=== PATIENT | female | born 1960 | race Caucasian/White ===

== ENCOUNTER → 2019-10-19 09:48 | Outpatient (CLI) | payer BC, SELFPAY ==
[2019-10-19 13:03] LABS: AST(SGOT) 28 U/L (15-37); Alanine Aminotransfer ALT/SGPT 46 U/L (13-56); Albumin, Serum 4.1 g/dL (3.2-5.0); Alkaline Phosphatase 84 U/L (45-117); Anion Gap 4 (5-15); BUN 13 mg/dL (7-18); BUN/Creat Ratio 16.4 RATIO (10-20); Chloride 105 mmol/L (98-107); Cholesterol 232 mg/dL (200); Creatinine, Serum 0.79 mg/dL (0.55-1.02); EST Glomerular Filtration Rate 79 mL/min (>60); Est Glom Filt Rate - Afr Amer 96 mL/min (>60); Globulin 4.1 g/dL (2.2-4.2); Glucose 76 mg/dL (74-106); High Density Lipoprotein 92 mg/dL; Potassium 3.7 mmol/L (3.5-5.1); Protein, Total 8.2 g/dL (6.4-8.2); Sodium Level 140 mmol/L (136-145); Thyroid Stim Hormone (TSH) 4.24 uIU/mL (0.358-3.74); Triglycerides 63 mg/dL; Very Low Density Lipoprotein 13 mg/dL (5-40)
== END ==
PROVIDERS: Nurse Practitioner Family; PCP Family Medicine; Referring Provider Family Medicine; Visit Provider Family Medicine
DX: E66.3 Overweight (principal)
CPT/HCPCS: 36415; 80053; 80061; 84443

== ENCOUNTER → 2019-10-19 11:27 | Outpatient (CLI) | payer BC, SELFPAY ==
[2019-10-19 11:27] VITALS: BMI 28.1
--- NOTE | 2019-10-19 11:28 | RAD_ITS ---
STUDY: X-RAY - LEFT HAND REASON FOR EXAM: Female, 58 years old. Pain. TECHNIQUE: 3 view(s) of the hand. COMPARISON: None. FINDINGS: Normal radiocarpal articulation. Normal distal radioulnar joint. Normal visualized carpal bones. Normal carpal articulations Normal carpometacarpal articulation of the thumb. Normal second through fifth carpometacarpal joints. Normal metacarpi. Normal metacarpophalangeal joint of the thumb. 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 Normal proximal and distal phalanges of the thumb. Normal metacarpophalangeal joints of the second through fifth fingers. Normal proximal and distal interphalangeal joints of the second through fifth fingers. Normal phalanges of the second through fifth fingers. The soft tissue structures are unremarkable. RAD/Hand Min 3 Views IMPRESSION: Minimal. Degenerative changes of the interphalangeal joint of the first digit. Electronically Signed: Jaime Deleon DO at 22:36 EST Tel [phone], Service support ,
== END ==
PROVIDERS: PCP Family Medicine; Referring Provider Orthopaedic Surgery; Visit Provider Orthopaedic Surgery
DX: M79.645 Pain in left finger(s) (principal)
CPT/HCPCS: 73130

== ENCOUNTER → 2020-10-17 14:58 | Outpatient (CLI) | payer BC, SELFPAY ==
[2019-10-19 11:27] VITALS: BMI 28.1
[2020-10-17 18:43] LABS: Thyroid Stim Hormone (TSH) 1.97 uIU/mL (0.358-3.74)
[2020-10-24 13:53] LABS: HPV Reflexed? NOT INDICATED
== END ==
PROVIDERS: Nurse Practitioner Family; PCP Family Medicine; Visit Provider Family Medicine
DX: Z01.419 Encounter for gynecological examination (general) (routine) without abnormal findings (principal); E03.9 Hypothyroidism, unspecified
CPT/HCPCS: 36415; 84443; 88175; G0145

== ENCOUNTER → 2020-10-28 13:35 | Outpatient (CLI) | payer BC, SELFPAY ==
[2019-10-19 11:27] VITALS: BMI 28.1
--- NOTE | 2020-10-28 13:40 | BI_ITS ---
MAMMOGRAPHY - BILATERAL SCREENING REASON FOR EXAM: Female, 59 years old. Routine annual screening examination. PERTINENT HISTORY: Non-contributory. TECHNIQUE: Digital bilateral breast daiana (3D mammographic acquisition) in the CC and MLO projections. 2-D mediolateral oblique (MLO) and craniocaudad (CC) views of both breasts were obtained. CAD: Full Field Digital Mammography with Computer Added Detection was performed. COMPARISON: Comparison is made with prior outside examination dated 07/22/2008. FINDINGS: Breast Composition: There are scattered areas of fibroglandular density. There are no dominant masses or suspicious calcifications. No other significant abnormalities are identified. There has been no significant change since the prior study. BI/SCRN MAMM (CAD)W/DAIANA BILAT IMPRESSION: Stable bilateral screening mammogram. Yearly follow-up mammogram recommended. (A) ASSESSMENT CATEGORY: BIRADS Category 1: Negative. A letter regarding these results will be sent to the patient by the facility within 30 days. Approximately 10% of breast cancers are not detected by mammography. A normal mammogram should not delay biopsy of a clinically suspicious abnormality. [id number] Electronically Signed: Vidal Alcantara MD at 15:26 EST , Service support ,
== END ==
PROVIDERS: PCP Family Medicine; Referring Provider Nurse Practitioner Family; Visit Provider Nurse Practitioner Family
DX: Z12.31 Encounter for screening mammogram for malignant neoplasm of breast (principal)
CPT/HCPCS: 77063; 77067

== ENCOUNTER → 2020-11-07 10:07 | Outpatient (CLI) | payer BC, SELFPAY ==
[2019-10-19 11:27] VITALS: BMI 28.1
[2020-11-08 20:27] LABS: HPV Reflexed? NOT INDICATED
== END ==
PROVIDERS: PCP Family Medicine; Visit Provider Nurse Practitioner Adult Health
DX: Z01.419 Encounter for gynecological examination (general) (routine) without abnormal findings (principal)
CPT/HCPCS: 88175; G0145

== ENCOUNTER 2021-12-29 15:41 | Outpatient (CLI) | payer BC, SELFPAY ==
[2021-12-29 18:13] LABS: Vitamin D,25 Hydroxy 80.1 ng/mL
[2021-12-29 18:22] LABS: AST(SGOT) 30 U/L (15-37); Alanine Aminotransfer ALT/SGPT 42 U/L (13-56); Albumin, Serum 3.8 g/dL (3.2-5.0); Alkaline Phosphatase 67 U/L (45-117); Anion Gap 6 (5-15); BUN 23 mg/dL (7-18); BUN/Creat Ratio 33.7 RATIO (10-20); Calcium,Total 9.2 mg/dL (8.5-10.1); Chloride 103 mmol/L (98-107); Creatinine, Serum 0.68 mg/dL (0.55-1.02); EST Glomerular Filtration Rate 93 mL/min (>60); Est Glom Filt Rate - Afr Amer 113 mL/min (>60); Globulin 3.8 g/dL (2.2-4.2); Glucose 94 mg/dL (74-106); Potassium 3.7 mmol/L (3.5-5.1); Protein, Total 7.6 g/dL (6.4-8.2); Sodium Level 138 mmol/L (136-145); T4 Free Direct 0.67 ng/dL (0.76-1.46)
== END 2021-12-29 23:59 | disposition home or self-care (01) ==
LOC: MFPLAB 15:42
PROVIDERS: PCP Family Medicine; Referring Provider Family Medicine; Visit Provider Family Medicine
DX: E55.9 Vitamin D deficiency, unspecified (principal); E03.9 Hypothyroidism, unspecified; Z82.62 Family history of osteoporosis
CPT/HCPCS: 36415; 80053; 82306; 84439; 84443

== ENCOUNTER → 2022-07-25 | Outpatient (CLI) | payer BC, SELFPAY ==
[2022-07-25 10:46] LABS: Anion Gap 3 (5-15); BUN 15 mg/dL (7-18); BUN/Creat Ratio 20.6 RATIO (10-20); Calcium,Total 9.5 mg/dL (8.5-10.1); Chloride 105 mmol/L (98-107); Cholesterol 238 mg/dL (200); Creatinine, Serum 0.73 mg/dL (0.55-1.02); EST Glomerular Filtration Rate 86 mL/min (>60); Est Glom Filt Rate - Afr Amer 105 mL/min (>60); Glucose 96 mg/dL (74-106); High Density Lipoprotein 83 mg/dL; Potassium 3.5 mmol/L (3.5-5.1); Sodium Level 139 mmol/L (136-145); Triglycerides 85 mg/dL; Very Low Density Lipoprotein 17 mg/dL (5-40)
== END | disposition home or self-care (01) ==
PROVIDERS: PCP Family Medicine; Referring Provider Family Medicine; Visit Provider Nurse Practitioner Family
DX: Z13.1 Encounter for screening for diabetes mellitus (principal); Z13.220 Encounter for screening for lipoid disorders
CPT/HCPCS: 36415; 80048; 80061

== ENCOUNTER → 2022-08-02 | Outpatient (CLI) | payer BC, SELFPAY ==
--- NOTE | 2022-08-02 10:31 | BI_ITS ---
MAMMOGRAPHY - BILATERAL SCREENING REASON FOR EXAM: Female, 61 years old. Routine annual screening examination. PERTINENT HISTORY: Non-contributory. TECHNIQUE: Digital bilateral breast daiana (3D mammographic acquisition) in the CC and MLO projections. 2-D mediolateral oblique (MLO) and craniocaudad (CC) views of both breasts were obtained. CAD: Full Field Digital Mammography with Computer Added Detection was performed. COMPARISON: Comparison is made with prior examination dated 10/28/2020. FINDINGS: Breast Composition: There are scattered areas of fibroglandular density. There are no dominant masses or suspicious calcifications. No other significant abnormalities are identified. There has been no significant change since the prior study. BI/SCRN MAMM (CAD)W/DAIANA BILAT IMPRESSION: Stable bilateral screening mammogram. Yearly follow-up mammogram recommended. (A) ASSESSMENT CATEGORY: BIRADS Category 1: Negative. A letter regarding these results will be sent to the patient by the facility within 30 days. Approximately 10% of breast cancers are not detected by mammography. A normal mammogram should not delay biopsy of a clinically suspicious abnormality. [id number] Electronically Signed: Vidal Alcantara MD at 11:16 EDT ,
== END | disposition home or self-care (01) ==
LOC: OPBI 10:29
PROVIDERS: PCP Family Medicine; Visit Provider Nurse Practitioner Family
DX: Z12.31 Encounter for screening mammogram for malignant neoplasm of breast (principal)
CPT/HCPCS: 77063; 77067

== ENCOUNTER → 2023-02-05 | Outpatient (CLI) | payer BC, SELFPAY ==
[2023-02-05 10:37] LABS: Cholesterol 234 mg/dL (200); High Density Lipoprotein 97 mg/dL; T4 Free Direct 0.72 ng/dL (0.76-1.46); Triglycerides 103 mg/dL; Very Low Density Lipoprotein 21 mg/dL (5-40)
== END | disposition home or self-care (01) ==
LOC: MTLAB 09:11
PROVIDERS: PCP Family Medicine; Referring Provider Family Medicine; Visit Provider Family Medicine
DX: E03.9 Hypothyroidism, unspecified (principal)
CPT/HCPCS: 36415; 80061; 84439; 84443

== ENCOUNTER → 2023-04-11 | Outpatient (CLI) | payer BC, SELFPAY ==
[2023-04-11 13:32] LABS: ALB/GLOB Ratio 0.8 RATIO (0.9-2.4); AST(SGOT) 18 U/L (15-37); Alanine Aminotransfer ALT/SGPT 24 U/L (13-56); Albumin, Serum 3.4 g/dL (3.2-5.0); Alkaline Phosphatase 81 U/L (45-117); Anion Gap 6 (5-15); BUN 13 mg/dL (7-18); BUN/Creat Ratio 17.8 RATIO (10-20); Calcium,Total 8.7 mg/dL (8.5-10.1); Chloride 105 mmol/L (98-107); Creatinine, Serum 0.73 mg/dL (0.55-1.02); EST Glomerular Filtration Rate 86 mL/min (>60); Est Glom Filt Rate - Afr Amer 104 mL/min (>60); Free T3 2.2 pg/mL (2.18-3.98); Globulin 4.1 g/dL (2.2-4.2); Glucose 79 mg/dL (74-106); Protein, Total 7.5 g/dL (6.4-8.2); Sodium Level 138 mmol/L (136-145); T4 Free Direct 0.72 ng/dL (0.76-1.46); Thyroid Stim Hormone (TSH) 2.97 uIU/mL (0.358-3.74)
== END | disposition home or self-care (01) ==
LOC: MFPLAB 11:20
PROVIDERS: PCP Family Medicine; Visit Provider Family Medicine
DX: E03.9 Hypothyroidism, unspecified (principal)
CPT/HCPCS: 36415; 80053; 84439; 84443; 84481

== ENCOUNTER → 2023-09-05 | Outpatient (CLI) | payer BC, SELFPAY ==
--- NOTE | 2023-09-05 10:12 | BI_ITS ---
MAMMOGRAPHY - BILATERAL SCREENING REASON FOR EXAM: Female, 62 years old. Routine annual screening examination. PERTINENT HISTORY: Non-contributory. TECHNIQUE: Digital bilateral breast daiana (3D mammographic acquisition) in the CC and MLO projections. 2-D mediolateral oblique (MLO) and craniocaudad (CC) views of both breasts were obtained. CAD: Full Field Digital Mammography with Computer Added Detection was performed. COMPARISON: Comparison is made with prior study dated August 02, 2022 and October 28, 2020. FINDINGS: Breast Composition: There are scattered areas of fibroglandular density. There are no dominant masses or suspicious calcifications. Stable calcified nodules in the midportion of the right breast. No other significant abnormalities are identified. There has been no significant change since the prior study. BI/SCRN MAMM (CAD)W/DAIANA BILAT IMPRESSION: Stable bilateral screening mammogram. Yearly follow-up mammogram recommended. (A) ASSESSMENT CATEGORY: BIRADS Category 1: Negative. A letter regarding these results will be sent to the patient by the facility within 30 days. Approximately 10% of breast cancers are not detected by mammography. A normal mammogram should not delay biopsy of a clinically suspicious abnormality. [id number] Electronically Signed: Vidal Alcantara MD at 11:19 EST ,
== END | disposition home or self-care (01) ==
LOC: OPBI 10:09
PROVIDERS: PCP Family Medicine; Referring Provider Nurse Practitioner Family; Visit Provider Nurse Practitioner Family
DX: Z12.31 Encounter for screening mammogram for malignant neoplasm of breast (principal)
CPT/HCPCS: 77063; 77067

== ENCOUNTER → 2023-11-12 | Outpatient (CLI) | payer BC, SELFPAY ==
--- OUTSIDE RECORDS SUMMARY | 2023-11-12 09:51 | XMS RPT_ITS | CCD ---
Author Name Unknown Address [address] [place] [address] Organization [facility] Care Team Providers Care Program Evaluator Name Role Phone Unavailable Primary Care Provider CLAUS Webb Attending CLAUS Webb Admitting CLAUS Webb Attending CLAUS Webb Attending Mikhail valadez Allergies Allergy Classification Reported Allergen(s) Allergy Type Date of Onset Reaction(s) Facility (3 sources) Tetanus Vaccines And Toxoid; Translations: [TETANUS VACCINES AND TOXOID] Drug Allergy 07-19-2022 Anaphylaxis [facility] Medications Completed/Discontinued Medications Medication Drug Class(es) Dates Sig (Normalized) Sig (Original) cyanocobalamin, vitamin B-12, (VITAMIN B-12 ORAL) (1 source) cyanocobalamin, vitamin B-12, (VITAMIN B-12 ORAL) Take by mouth once daily. 0 Active Problems Active Problems Problem Classification Problem Date Documented Date Episodic/Chronic Other connective tissue disease (1 source) Pain in right foot; Translations: [Pain in right foot] Episodic Other connective tissue disease (1 source) Pain in right foot; Translations: [Pain in right foot] Onset: 07-18-2023 Episodic Other connective tissue disease (1 source) Neuralgia and neuritis, unspecified; Translations: [Neuritis] Onset: 07-18-2023 Episodic Residual codes; unclassified (1 source) Postoperative state; Translations: [Other specified postprocedural states] Episodic Past or Other Problems Problem Classification Problem Date Documented Date Episodic/Chronic Complication of device; implant or graft (2 sources) Pain; Translations: [Pain due to internal orthopedic prosthetic devices, implants and grafts, initial encounter] Onset: 08-06-2022 Episodic Residual codes; unclassified (1 source) Other specified postprocedural states; Translations: [Post-operative state] Onset: 08-22-2022 Episodic Results Test Name Value Interpretation Reference Range Facil ity Vital Signs Date Time Vital Sign Value Performing Clinician Yoni nix 08-22-2022 11:26-0500 Body height 157.5 cm Claus Carmen DPM Work Phone: [facility] 08-22-2022 11:26-0500 Body weight 65.77 kg Claus Carmen DPM Work Phone: [facility] 08-22-2022 11:26-0500 Respiratory rate 20 /min Claus Carmen DPM Work Phone: [facility] 07-19-2022 10:01-0400 Body height 157.5 cm Claus Carmen DPM Work Phone: [facility] 07-19-2022 10:01-0400 Body weight 66.22 kg Claus Carmen DPM Work Phone: [facility] 07-19-2022 10:01-0400 Respiratory rate 18 /min Claus Carmen DPM Work Phone: [facility] Encounters Encounter Date Encounter Type Care Provider Facility Start: 07-18-2023 End: 07-18-2023 ambulatory CLAUS MORALES Facility:[facility] Start: 08-22-2022 End: 08-22-2022 ambulatory CLAUS MORALES Facility:[facility] Start: 08-22-2022 End: 08-22-2022 Patient encounter procedure Claus Morales DPM Work Phone: [facility] Procedures Date Procedure Procedure Detail Performing Clinician Start: 07-19-2022 Radex foot complete minimum 3 views Gary Stewart DPM Work Phone: Plan of Treatment Date Care Activity Detail Author Start: 05-31-2022 Influenza vaccination INFLUENZA (#1) [facility] Start: 09-30-2021 DEPRESSION ASSESSMENT DEPRESSION ASS ESSMENT [facility] Start: 12-10-2011 SHINGRIX VACCINE (1 of 2) SHINGRIX V ACCINE (1 of 2) [facility] Start: 2006 COLOGUARD (FIT-DNA) COLOGUARD (FIT-D NA) [facility] Start: 2006 Colonoscopy COLONOSCOPY [facility] Start: 2006 COLORECTAL CANCER SCREENING COLORECTAL CANCER SCREENING [facility] Start: [address] COLONOGRAPHY [facility] Start: 2006 DIABETES SCREEN DIABETES SCREEN [facility] Start: 2006 FECAL OCCULT BLOOD FECAL OCCULT BLOO D [facility] Start: 2006 LIPID SCREEN LIPID SCREEN [facility] Start: 2006 SIGMOIDOSCOPY SIGMOIDOSCOPY [facility] Start: 2001 Mammography MAMMOGRAM [facility] Start: 12-10-1991 HPV TESTING HPV TESTING [facility] Start: 1982 PAP TESTING PAP TESTING [facility] Start: 1980 Urine microalbumin profile DTAP,TDAP ,TD (1 - Tdap) [facility] Start: 12-10-1979 HEPATITIS C SCREENING HEPATITIS C SC REENING [facility] Start: 12-10-1979 HIV SCREENING HIV SCREENING [facility] Start: 06-11-1962 COVID-19 VACCINE (#1) COVID-19 VACCI NE (#1) [facility] Payers Date Payer Category Payer Unknown JOYCE MURRIETA PPO [id number] 2021-Present [phone] [address] [place] [address] PPO [id number] 2021 Unknown [id number] Social History Date Type Detail Facility Tobacco smoking status ORIS Tobacco smoking consumption unknown [facility] Start: 1960 Sex Assigned At Not on file [facility] Start: 07-19-2022 Tobacco smoking status NHIS Never smoked tobacco [facility] Start: 07-19-2022 End: 08-06-2022 Tobacco use and exposure Smokeless tobacco non-user [facility] Start: 07-26-2022 End: 09-04-2022 Alcohol intake Current drinker of alcohol (finding) [facility] Start: 07-09-2022 End: 08-22-2022 Exposure to SARS-CoV-2 (event) Not sure [facility] Start: 08-06-2022 Tobacco smoking status NHIS Ex-smoker [facility] Work Phone: History of tobacco use Current smoker [facility] Work Phone: History of tobacco use Cigarette Smoker [facility] Work Phone: Start: 08-06-2022 Tobacco Comment Smoked for 3 y ears as a teenager. [facility] Start: 08-06-2022 Alcohol [facility] Start: 1960 Sex Assigned At Female C [facility] Progress note 07-18-2023 Note Date & Type Note Facility 07-18-2023 Note HNO ID: [id number] Author: Claus Morales DPM Service: ? Author Type: Physician Type: Progress Notes Filed: 07/31/2023 8:46 PM Note Text: This 62 year old female presents for a concern of screw prominence to lateral midfoot. Patient relates she had no pain all summer but noticed increased burning, numbness, and tingling sensation when she transitioned to closed toe shoes for fall. Relates voltaren gel significantly helps her pain. States pain is improved with removal of shoe gear. Has tried modifying shoe gear with some benefit. Relates no new injury or trauma . Denies any other pedal complaints. PAST MEDICAL HISTORY Diagnosis Date Generalized anxiety disorder Hypothyroidism Right foot pain Current Outpatient Medications Medication Sig MULTIVITAMIN ORAL Take by mouth once daily. FOLIC ACID ORAL Take by mouth once daily. cyanocobalamin, vitamin B-12, (VITAMIN B-12 ORAL) Take by mouth once daily. docosahexaenoic acid/epa (FISH OIL ORAL) Take by mouth once daily. diclofenac (VOLTAREN) 1 % topical gel Apply to affected area. escitalopram oxalate (LEXAPRO) 20 mg tablet ARMOUR THYROID 30 mg tablet No current facility-administered medications for this visit. ALLERGIES Allergen Reactions Tetnus [Tetanus Vac* Anaphylaxis Objective: Patient presents WBAT in clogs. Problem focus examination to the right lower extremity: Neurovascular status within normal limits. Limited ROM to midfoot SP ORIF. No prominent hardware is palpable. Palpable midfoot osteophytes noted. + Tinel to SPN nerve with distal radiation into midfoot. Satisfactory alignment is noted. Pedal pulses are palpable. Capillary refill time is less than three seconds to all digits. Sensations are intact to light touch. XR R FOOT 07/18/23 Status post ORIF midfoot. Stable post-operative appearance. Hardware in normal position without evidence of failure or loosening. Position maintained. No acute destructive changes. No gas in the soft tissues. Spurring noted to dorsal TMTJ. Assessment: Satisfactory post-operative progress Plan: The patient was educated on clinical examination findings, postoperative prognosis and protocol. All questions were answered to patient's apparent satisfaction. - We discussed patient has SPN neuritis and there is no interval change in her hardware position as she had suspected. We discussed modifying shoe gear with RX for seond sole given today. We discussed skip lacing and avoiding pressure to the dorsal foot. Patient is to continue voltaren gel as it has provided her with benefit. We discussed if her problems persist a possible steroid injection vs oral steroid taper would be beneficial. Follow up as needed. Jesus Brooks DPM PGY3 I personally saw and evaluated the patient. I reviewed the resident's note. I agree with the resident's assessment and plan unless otherwise noted. Claus Morales DPM, [facility] Progress note 08-22-2022 Note Date & Type Note Facility 08-22-2022 Note HNO ID: [id number] Author: Claus Morales DPM Service: ? Author Type: Physician Type: Progress Notes Filed: 09/04/2022 4:47 PM Note Text: DOS: 08/06/2022 POD: 9 days Procedure: Removal internal fixation, right foot This 61 year old female presents for a post op visit. Patient states they are doing well. Pain is well controlled. Has been icing and elevating the extremity as instructed preoperatively and has been weightbearing as tolerated to the right lower extremity in a surgical shoe. Denies any current nausea, vomiting, fever, chills, shortness of breath, chest pain or calf pain. Denies any other pedal complaints. PAST MEDICAL HISTORY Diagnosis Date Generalized anxiety disorder Hypothyroidism Current Outpatient Medications Medication Sig MULTIVITAMIN ORAL Take by mouth once daily. FOLIC ACID ORAL Take by mouth once daily. cyanocobalamin, vitamin B-12, (VITAMIN B-12 ORAL) Take by mouth once daily. docosahexaenoic acid/epa (FISH OIL ORAL) Take by mouth once daily. diclofenac (VOLTAREN) 1 % topical gel Apply to affected area. escitalopram oxalate (LEXAPRO) 20 mg tablet ARMOUR THYROID 30 mg tablet No current facility-administered medications for this visit. ALLERGIES Allergen Reactions Tetnus [Tetanus Vac* Anaphylaxis Objective: Patient presents weightbearing as tolerated to right leg in a surgical shoe. Dressing is dry, clean, and intact with mild strike through noted. Problem focus examination to the right lower extremity: Incision site is well coapted without evidence of dehiscence. Mild erythema and edema surrounding surgical site. No drainage. No lymphadenopathy. No lymphangitis. No surrounding cellulitis. No signs of infection. Patient has no pain to palpation of calf. The calf is soft, supple and nontender without evidence of DVT. Negative Kiana's test. Satisfactory alignment is noted. Pedal pulses are palpable. Capillary refill time is less than three seconds to all digits. Sensations are intact to light touch. Assessment: Satisfactory post-operative progress Plan: The patient was educated on clinical examination findings, postoperative prognosis and protocol. All questions were answered to patient's apparent satisfaction. - Bandage removed and new dressing applied. - Sutures were removed at today's visit and steri-strips applied overlying . - Patient to continue weightbearing to the operative extremity. - She is to transition out of surgical shoe into a regular shoe Follow up as needed. Scribe: I, Emelia Dixon MA , am working as a scribe for and in the presence of Claus Morales DPM at 11:51 AM on August 22, 2022.? Clinician Attestation Statement: The information in this document, created by the medical chemist for me, accurately reflects the services I personally performed and the decisions made by me. I have reviewed and approved this document for accuracy. Claus Morales DPM, [facility] History of Present illness Narrative 08-22-2022 Claus Morales DPM - 08/22/2022 11:50 AM EST Note Date & Type Note Facility 08-22-2022 History of Presen t illness Narrative DOS: 08/06/2022 POD: 9 days Procedure: Removal internal fixation, right foot This 61 year old female presents for a post op visit. Patient states they are doing well. Pain is well controlled. Has been icing and elevating the extremity as instructed preoperatively and has been weightbearing as tolerated to the right lower extremity in a surgical shoe. Denies any current nausea, vomiting, fever, chills, shortness of breath, chest pain or calf pain. Denies any other pedal complaints. PAST MEDICAL HISTORY Diagnosis Date Generalized anxiety disorder Hypothyroidism Current Outpatient Medications Medication Sig MULTIVITAMIN ORAL Take by mouth once daily. FOLIC ACID ORAL Take by mouth once daily. cyanocobalamin, vitamin B-12, (VITAMIN B-12 ORAL) Take by mouth once daily. docosahexaenoic acid/epa (FISH OIL ORAL) Take by mouth once daily. diclofenac (VOLTAREN) 1 % topical gel Apply to affected area. escitalopram oxalate (LEXAPRO) 20 mg tablet ARMOUR THYROID 30 mg tablet No current facility-administered medications for this visit. ALLERGIES Allergen Reactions Tetnus [Tetanus Vac* Anaphylaxis Objective: Patient presents weightbearing as tolerated to right leg in a surgical shoe. Dressing is dry, clean, and intact with mild strike through noted. Problem focus examination to the right lower extremity: Incision site is well coapted without evidence of dehiscence. Mild erythema and edema surrounding surgical site. No drainage. No lymphadenopathy. No lymphangitis. No surrounding cellulitis. No signs of infection. Patient has no pain to palpation of calf. The calf is soft, supple and nontender without evidence of DVT. Negative Kiana's test. Satisfactory alignment is noted. Pedal pulses are palpable. Capillary refill time is less than three seconds to all digits. Sensations are intact to light touch. Assessment: Satisfactory post-operative progress Plan: The patient was educated on clinical examination findings, postoperative prognosis and protocol. All questions were answered to patient's apparent satisfaction. - Bandage removed and new dressing applied. - Sutures were removed at today's visit and steri-strips applied overlying . - Patient to continue weightbearing to the operative extremity. - She is to transition out of surgical shoe into a regular shoe Follow up as needed. Scribe: Emelia Carnes MA , am working as a scribe for and in the presence of Claus Morales DPM at 11:51 AM on August 22, 2022. Clinician Attestation Statement: The information in this document, created by the medical chemist for me, accurately reflects the services I personally performed and the decisions made by me. I have reviewed and approved this document for accuracy. Claus Morales DPM, FACFAS documented in this encounter [facility] History of Past illness Narrative 08-06-2022 Note Date & Type Note Facility documented as of this encounter (statuses as of 09/04/2022) [facility] History of Present illness Narrative 07-22-2022 Claus Morales DPM - 07/22/2022 8:35 PM EDTSjerman Dixon MA - 07/19/2022 10:00 AM EDT Note Date & Type Note Facility 07-22-2022 History of Presen t illness Narrative Chief Complaint: right foot pain HPI: This 61 year old female with PMH indicated below presents complaining of right foot pain. Patient states she had a midfoot fusion surgery several years ago. She reports roughly two weeks ago her foot started hurting after starting to wear closed toed shoes due to the cold weather. Since then she has been having a burning and sharp pain to her right foot. She denies constitutional symptoms. No other pedal complaints. PCP: No primary care provider on file.: History reviewed. No pertinent past medical history.: Current Outpatient Medications Medication Sig escitalopram oxalate (LEXAPRO) 20 mg tablet ARMOUR THYROID 30 mg tablet No current facility-administered medications for this visit. : ALLERGIES Allergen Reactions Tetnus [Tetanus Vac* Anaphylaxis : PAST SURGICAL HISTORY Procedure Laterality Date FOOT SURGERY HX Right History reviewed. No pertinent family history.: Social History Tobacco Use Smoking status: Never Smokeless tobacco: Never Substance Use Topics Alcohol use: Yes Drug use: Never REVIEW OF SYSTEMS See SYMONE note. MSK: + as noted in HPI. Physical Examination: On General Observation: Patient is a pleasant, cooperative, well developed 61 year old adult female. The patient is alert and oriented to time, place and person. Patient has normal affect and mood. Resp 18 Ht 157.5 cm (5' 2 ) Wt 66.2 kg (146 lb) BMI 26.70 kg/m Examination of both lower extremities: Satisfactory alignment. No gross deformity is noted. Normal alignment in stance. Peripheral pulses are palpable. Capillary refill time is less than 3 seconds to all toes. The skin is warm and dry. No rashes or lesions. There are no open wounds or signs of infection, There is no lymphadenopathy noted. Peripheral sensation and reflexes are intact, bilateral and symmetrical. Motor strength is 5/5 of all groups. Normal range of motion, stability and coordination of both lower extremities. Pain to palpation to the third metatarsal. Prominent screw noted to the third metatarsal dorsally. Radiographs: 3 views AP, MO, Lat right Foot were taken and evaluated. Radiographic evaluation: No obvious fracture or dislocation is noted. No acute osseous changes. No osteolytic or osteoblastic lesions appreciated. No soft tissue gas. No discernible mass noted. Bone density appear typical for age of patient. Status post 1st, 2nd, and 3rd TMTJ arthrodesis and naviculocuneiform arthrodesis. Position is maintained. Hardware is intact with except possible loosening noted to the screw head within the third metatarsal. ASSESSMENT: This 61 year old female patient presents today with painful hardware right foot. Plan: - A comprehensive history and physical examination were preformed. The patient was educated on clinical and radiographic findings, diagnosis and treatment plans. Patient state that she understands all that has been explained and all questions were answered to her apparent satisfaction. - Etiology and treatment options were discussed with the patient. Consent obtained for hardware removal right foot. A comprehensive history and physical examination were preformed. The patient was educated on clinical and radiographic findings, diagnosis and treatment plans. Patient states that she understands all that has been explained and all questions were answered to her apparent satisfaction. Educated patient on conservative and surgical treatment options. The patient understands all explained to her and would like to proceed with surgical intervention. I've recommended hardware removal right foot third metatarsal screw. Patient was educated on the details of the procedures as well as medically reasonable risks, benefits, alternatives and prognosis. Patient was also educated on perioperative management including preoperative medical clearance, preoperative physical therapy consultation, postoperative care and rehabilitation, anticipated time to full weightbearing, return to shoes and maximum medical improvement. Lastly patient was educated to their apparent understanding on potential complications including but not limited to infection, recurrence, over correction or under correction, persistent pain, swelling or disability, nerve injury or entrapment, bone and soft tissue healing complications, complications with anesthesia and deep vein thrombosis or pulmonary embolism. All questions were answered to the patient s apparent satisfaction. No guarantees were given as to the outcome of the surgery. Medical clearance pending and surgical scheduling to follow. Follow up 1 week after surgery. Gary Stewart DPM PGY-3 Total patient care time w/ pt was at least 45 minutes w/ at least 50% of the time spent reviewing the results of the recent imaging including XR, counseling the pt on treatment options and coordinating their care. I personally saw and evaluated the patient. I reviewed the resident's note. I agree with the resident's assessment and plan unless otherwise noted. Claus Morales DPM, FACFAS REVIEW OF SYSTEMS: GENERAL: Well developed, well nourished. No acute distress PAIN: Negative for pain, history of chronic pain or current treatment for chronic pain conditions and Pain 12/07 CARDIOVASCULAR: Negative for chest pain, leg swelling and palpations. MSK: Negative for joint swelling SKIN: Negative for lesions, rash, itching, metal sensitivity NEURO: Negative for seizure, trauma, numbness/tingling of extremities. ENDOCRINE: Negative for diabetic associated symptoms HEMATOLOGY: Negative for excessive bleeding, clots, bleeding disorders. Emleia Dixon MA documented in this encounter [facility] Note 07-02-2022 Telephone Encounter - Jade Francisco Certified Physician Assistant [facility] - 07/02/2022 7:50 PM EDTTelephone Encounter - Robina López Certified Physician Assistant [facility] - 07/02/2022 3:37 PM EDT Note Date & Type Note Facility 07-02-2022 Miscellaneous Notes Formattin g of this note might be different from the original. Spoke with patient and appointment was made Jade Mendiola [facility] ----- Message from Jose Cruz Green sent at 07/02/2022 2:22 PM EDT ----- Regarding: Orthopedics / Open Foot: Pain / Previous Surgery By A Non-AG Provider Subject Line Format: Orthopedics / [Provider Name or Open & Body Part ] / [Issue] Patient has been identified by name and Date of (Y/N): yes Patient: Bebe Gee Date of : 1960 Previous Provider Seen: carmen 15 years ago not in epic Body Part(s) Identified: right foot Diagnosis/Reason For Visit: pain Reason for the call/escalation: prevous surgery If reason for call/escalation is discharge from ED/ER or Hospital, which facility was the patient seen at: no Was an appointment scheduled (Y/N): no Person calling if other than patient: no Return call to if other than patient: no Best contact number: [phone] Thank you, Jose Cruz Green July 02, 2022 2:23 PM Electronically signed by Robina López Certified Physician Assistant [facility] at 07/02/2022 3:37 PM EDT documented in this encounter [facility] Evaluation note Note Date & Type Note Facility documented in this encounter [facility] Evaluation note Note Date & Type Note Facility documented in this encounter [facility] Reason for referral (narrative) Diagnostic Procedure Only (Routine) - Pending Review Note Date & Type Note Facility Referral ID Status Reason Start Date Expiration Date Visits Requested Visits Authorized [id number] Pending Review Auto-Generat ed Referral 2 08/18/2023 1 1 [facility] Summary Purpose Family History No Family History Records Found Advance Directives No Advanced Directives Records Found Additional Source Comments Source Comments (unrecognize d section and content) In the event this informatio n is protected by the Federal Confidentiality of Alcohol and Drug Abuse Patient Records regulations: The Federal rules restrict any use of the information to criminally investigate or prosecute any alcohol or drug abuse patient.[facility] the event this information is protected by the Federal Confidentiality of Alcohol and Drug Abuse Patient Records regulations: The Federal rules restrict any use of the information to criminally investigate or prosecute any alcohol or drug abuse patient.[facility] the event this information is protected by the Federal Confidentiality of Alcohol and Drug Abuse Patient Records regulations: The Federal rules restrict any use of the information to criminally investigate or prosecute any alcohol or drug abuse patient.[facility] Reason for Visit (unrecogniz ed section and content) Reason Comments New Established Patient Reason Comments Established Patient Follow Up Post Op INFORMATION SOURCE (unrecogn ized section and content) FOR RECORDS PERTAINING TO PATIENTS WHO ARE OR HAVE BEEN ENROLLED IN A CHEMICAL DEPENDENCY/SUBSTANCEABUSE PROGRAM, SOME INFORMATION MAY BE OMITTED. This clinical summary was aggregated from multiple sources. Caution should be exercised in using it in the provision of clinical care. This summary normalizes information from multiple sources, and as a consequence, information in this document may materially change the coding, format and clinical context of patient data. In addition, data may be omitted in some cases. CLINICAL DECISIONS SHOULD BE BASED ON THE PRIMARY CLINICAL RECORDS. [facility] [employer] [facility]. provides no warranty or guarantee of the accuracy or completeness of information in this document.
[2023-11-12 10:52] LABS: Free T3 2.8 pg/mL (2.18-3.98); T4 Free Direct 0.69 ng/dL (0.76-1.46); Thyroid Stim Hormone (TSH) 3.74 uIU/mL (0.358-3.74)
== END | disposition home or self-care (01) ==
LOC: MFPLAB 09:14
PROVIDERS: PCP Family Medicine; Visit Provider Family Medicine
DX: E03.9 Hypothyroidism, unspecified (principal)
CPT/HCPCS: 36415; 84439; 84443; 84481

== ENCOUNTER → 2024-11-05 | Outpatient (CLI) | payer BC, SELFPAY ==
--- NOTE | 2024-11-05 10:29 | BD_ITS ---
PROCEDURE: DEXA BONE DENSITY STUDY REASON FOR EXAM: 63-year-old female. Osteoporosis screening. TECHNIQUE: DEXA scan of the lumbar spine and both hips. COMPARISON: None. FINDINGS: T-SCORES Lumbar spine: T-score -1.1. (Bone mineral density 0.858 g per cm2. Left hip: T-score -1.8. (Bone mineral density 0.645 g per cm2.) Right hip: T-score -1.6. (Bone mineral density 0.676 g per cm2.) FRAX* Results: 10 Year Probability of Fracture: Hip Fracture(1): 1.1% Major Osteoporotic Fracture(2): 1.1% *FRAX is a trademark of the [employer]'s [place] [facility] Metabolic Bone Disease, World Health Organization (WHO) Collaborating [place]. 1-The 10-year probability of fracture may be lower than reported if the patient has received treatment. 2-Major Osteoporotic Fracture: Clinical Spine, Forearm, Hip or Shoulder. The T-scores are also available for review on the [facility] PACS or by accessing the [facility] electronic medical record. BD/Dexa Bone Density Study IMPRESSION: Osteopenia. Reading Location: [facility]
--- NOTE | 2024-11-05 10:29 | BI_ITS ---
PROCEDURE: SCRN MAMM (CAD)W/DAIANA BILAT REASON FOR EXAM: F, Age 63 y/o, presents for annual screening mammogram. TECHNIQUE: Bilateral screening digital breast tomosynthesis with 2D and 3D images. Computer aided detection. COMPARISON: 09/05/2023, 08/02/2022. FINDINGS: There are scattered areas of fibroglandular density. No suspicious masses, areas of developing architectural distortion, or suspicious calcifications. BI/SCRN MAMM (CAD)W/DAIANA BILAT IMPRESSION: There is no mammographic evidence of malignancy in either breast. BI-RADS 1: NEGATIVE. RECOMMEND ANNUAL MAMMOGRAPHIC SCREENING. Follow-up code: Routine Follow-up The patient will be notified of the results by letter. Reading Location: [id number]
== END | disposition home or self-care (01) ==
LOC: OPBD 10:27
PROVIDERS: PCP Family Medicine; Referring Provider Family Medicine; Visit Provider Family Medicine
DX: Z12.31 Encounter for screening mammogram for malignant neoplasm of breast (principal); M85.80 Other specified disorders of bone density and structure, unspecified site
CPT/HCPCS: 77063; 77067; 77080